=== PATIENT | female | born 2000 | race Two or more races ===

== ENCOUNTER 2022-07-07 23:23 | Emergency (ER) | payer OTHER ==
[~2022-07-07] VITALS: Ht 149.9 cm; Wt 40.8 kg
[2022-07-08] MEDS ORDERED: PEPCID40 MG PO (03:04)
== END 2022-07-08 03:08 | disposition home or self-care (01) ==
LOC: EMR PED 23:23 → ER 23:23
DX: T78.40XA Allergy, unspecified, initial encounter (principal)